=== PATIENT | male | born 1955 | race Caucasian/White ===

== ENCOUNTER 2023-11-30 05:24 | Inpatient (IN) | payer BC, OTHER ==
[~2023-11-30] VITALS: Ht 175.3 cm; Wt 75.8 kg
[~2023-11-30 05:24] MED LIST: BUDE6HFA INH; HYDR-3919 PO; TIOT18CA3 IH; TRAZ-250 PO; VIS50 PO; WELSR100 PO
[2023-11-30 05:29] VITALS: BP_SYST 111; PULSE 71; RESP 18; TEMP 97.8; O2SAT 98
[2023-11-30] MEDS: HYDROcodone/ACETAMIN 5-325 MG TAB (NORCO/ VICODIN) PO ONE (06:24)
[2023-11-30] MEDS: OXYMETAZOLINE HCL 0.05% NASAL SPRAY NS ONE (06:33)
[2023-11-30 06:34] LABS: MEAN CORPUSCULAR HEMOGLOBIN 32 pg (27-31); MEAN CORPUSCULAR HGB CONC 35 % (32-36); MEAN CORPUSCULAR VOLUME 91 fL (79.0-98.0); RED CELL DISTRIBUTION WIDTH 20.3 % (9.0-15.0); WHITE BLOOD COUNT (AUTO) 4.9 K/uL (4.8-10.8)
[2023-11-30 06:41] LABS: CALCIUM 8.9 mg/dL (8.4-11.0); CREATININE 1.23 mg/dL (0.55-1.30); POTASSIUM 4.1 mmol/L (3.5-5.1); RED BLOOD CELL COUNT(AUTO) 1.93 MIL/uL (4.2-6.2)
[2023-11-30 06:43] LABS: HEMATOCRIT 17.6 % (36-54); HEMOGLOBIN 6.1 g/dL (14.0-18.0); PLATELET COUNT (AUTO) 28 K/uL (130-430)
[2023-11-30 06:46] LABS: ALBUMIN 3.4 g/dL (3.4-4.8); BILIRUBIN,DIRECT 0.2 mg/dL (0.0-0.3); TOTAL BILIRUBIN 0.5 mg/dL (0.0-1.0); TOTAL PROTEIN, SERUM 6.5 g/dL (6.4-8.3)
[2023-11-30 06:55] LABS: INR 1.1 (0.80-1.20); PROTHROMBIN TIME 11.6 SECS (9.5-12.5)
[2023-11-30 07:35] LABS: FIBRINOGEN 285 mg/dL (200-400)
[2023-11-30 08:03] LABS: BAND % (MANUAL) 10 % (0-6)
[2023-11-30 08:04] LABS: ANISOCYTOSIS 2+; BASOPHILS % (MANUAL) 0 % (0-2); CORRECTED WHITE BLOOD COUNT 4.7 K/uL (4.5-11.0); EOSINOPHILS % (MANUAL) 0 % (0-7); LYMPHOCYTES % (MANUAL) 22 % (20-46); METAMYELOCYTES % 3 % (0-0); MONOCYTES % (MANUAL) 3 % (0-11); MYELOCYTES % 1 % (0-0); PLATELET ESTIMATE DECREASED (ADEQUATE)
[2023-11-30 08:05] LABS: HELMET CELLS FEW; POLYCHROMASIA 1+; TEAR DROP CELLS FEW
[2023-11-30] MEDS ORDERED: SIMV-343 PO (09:16)
[2023-11-30] MEDS ORDERED: SULF500T8 PO (09:16)
[2023-11-30] MEDS ORDERED: GABA-529 PO (09:16)
[2023-11-30] MEDS ORDERED: DICL75TA5 PO (09:16)
[2023-11-30] MEDS ORDERED: TAMS-11 PO (09:16)
[2023-11-30] MEDS ORDERED: RUXO10TA PO (09:17)
[2023-11-30] MEDS: MORPHINE 2 MG/ML INJ. SYRINGE IVP ONE (09:30)
[2023-11-30] MEDS ORDERED: NALOXONE HCL 0.4 MG/ML AMP (NARCAN) IVP PRN ×3 (12:45→13:00)
[2023-11-30] MEDS ORDERED: ONDANSETRON HCL 4 MG/2 ML VIAL IVP PRN (13:00)
[2023-11-30] MEDS ORDERED: ACETAMINOPHEN 325 MG TABLET PO PRN (13:00)
[2023-11-30] MEDS: MORPHINE 2 MG/ML INJ. SYRINGE IVP PRN (13:32)
[2023-11-30 14:15] VITALS: O2SAT 96
[2023-11-30] MEDS ORDERED: IPRATROPIUM/ALBUTEROL SULFATE 3 ML AMPUL.NEB (DUONEB) ONE (14:15)
[2023-11-30 14:18] VITALS: PULSE 80; O2SAT 96
[2023-11-30] MEDS: NORMAL SALINE 5 ML DISP.SYRIN IVF SCH (15:10)
[2023-11-30] MEDS: DICLOFENAC SODIUM 25 MG TABLET.DR PO ONE (16:15)
[2023-11-30] MEDS: sulfaSALAzine 500 MG TABLET PO ONE (16:15)
[2023-11-30] MEDS: SIMVASTATIN 20 MG TABLET PO ONE (16:15)
[2023-11-30] MEDS: HYDROcodone/ACETAMIN 10-325 MG TAB PO PRN (16:45)
[2023-11-30] MEDS: GABAPENTIN 100 MG CAPSULE PO SCH (16:50)
[2023-11-30] MEDS ORDERED: SODIUM CL 3% FOR INHALATION 15 ML VIAL.NEB INH ONE (17:19)
[2023-11-30 19:31] LABS: BILIRUBIN,URINE NEGATIVE (NEGATIVE); BLOOD, URINE NEGATIVE (NEGATIVE); CLARITY/URINE CLEAR (CLEAR); COLOR,URINE YELLOW (YELLOW); GLUCOSE,URINE NEGATIVE (NEGATIVE); KETONES,URINE NEGATIVE (NEGATIVE); LEUKOCYTE ESTERASE ,URINE NEGATIVE (NEGATIVE); NITRITE, URINE NEGATIVE (NEGATIVE); PROTEIN URINE NEGATIVE (NEGATIVE); UROBILINOGEN,URINE 0.2 (0.2-1.0)
[2023-11-30] MEDS: TAMSULOSIN HCL 0.4 MG CAP PO SCH (21:24)
[2023-11-30] MEDS: RUXOLITINIB 10 MG PO SCH (21:25)
[2023-12-01] VITALS (11 sets, daily range): BP systolic 124–149; PULSE 79–100; RESP 18–20; TEMP 97.5–100.6; O2SAT 92–99
[2023-12-01] MEDS: IPRATROPIUM/ALBUTEROL SULFATE 3 ML AMPUL.NEB (DUONEB) INH PRN (02:53)
[2023-12-01 05:25] LABS: BASOPHILS % (AUTO) 0.9 % (0.0-2.0); EOSINOPHILS % (AUTO) 0.3 % (0.0-4.0); LYMPHOCYTES # (AUTO) 0.8 K/uL (1.0-5.5); LYMPHOCYTES % (AUTO) 22.1 % (20.5-51.5); MEAN CORPUSCULAR HEMOGLOBIN 32 pg (27-31); MEAN CORPUSCULAR HGB CONC 35 % (32-36); MEAN CORPUSCULAR VOLUME 91 fL (79.0-98.0); MONOCYTES # (AUTO) 0.2 K/uL (0.0-1.0); MONOCYTES % (AUTO) 5.8 % (1.7-9.3); NEUTROPHILS # (AUTO) 2.5 K/uL (1.8-7.7); NEUTROPHILS % (AUTO) 70.9 % (40.0-70.0); RED CELL DISTRIBUTION WIDTH 19.3 % (9.0-15.0); WHITE BLOOD COUNT (AUTO) 3.5 K/uL (4.8-10.8)
[2023-12-01 05:43] LABS: TOTAL IRON BIND. CAPACITY 239 ug/dL (250-450)
[2023-12-01 06:01] LABS: CALCIUM 8.4 mg/dL (8.4-11.0); CREATININE 1.16 mg/dL (0.55-1.30); POTASSIUM 4.1 mmol/L (3.5-5.1); TOTAL BILIRUBIN 0.6 mg/dL (0.0-1.0); TOTAL PROTEIN, SERUM 5.9 g/dL (6.4-8.3)
[2023-12-01 06:35] LABS: RED BLOOD CELL COUNT(AUTO) 1.74 MIL/uL (4.2-6.2)
[2023-12-01 06:38] LABS: HEMATOCRIT 15.7 % (36-54); HEMOGLOBIN 5.5 g/dL (14.0-18.0); PLATELET COUNT (AUTO) 26 K/uL (130-430)
[2023-12-01] MEDS: SIMVASTATIN 20 MG TABLET PO SCH (08:13)
[2023-12-01] MEDS: DICLOFENAC SODIUM 25 MG TABLET.DR PO SCH (08:13)
[2023-12-01] MEDS: sulfaSALAzine 500 MG TABLET PO SCH (09:00)
[2023-12-01] MEDS: FOLIC ACID 1 MG TABLET PO ONE (15:08)
[2023-12-01 22:13] LABS: HEMOGLOBIN 6.6 g/dL (14.0-18.0)
[2023-12-01] MEDS: guaiFENesin 200 MG/CODEINE 20 MG/ 10 ML UDC PO PRN (23:51)
[2023-12-02] VITALS (8 sets, daily range): BP systolic 145–149; PULSE 81–99; RESP 18–20; TEMP 98–98.6; O2SAT 90–98
[2023-12-02 06:26] LABS: HEMOGLOBIN 7.3 g/dL (14.0-18.0); MEAN CORPUSCULAR HEMOGLOBIN 32 pg (27-31); MEAN CORPUSCULAR HGB CONC 35 % (32-36); MEAN CORPUSCULAR VOLUME 91 fL (79.0-98.0); RED BLOOD CELL COUNT(AUTO) 2.29 MIL/uL (4.2-6.2); RED CELL DISTRIBUTION WIDTH 17.8 % (9.0-15.0); WHITE BLOOD COUNT (AUTO) 3.7 K/uL (4.8-10.8)
[2023-12-02 06:56] LABS: ALBUMIN 3.1 g/dL (3.4-4.8); CALCIUM 8.5 mg/dL (8.4-11.0); CREATININE 0.98 mg/dL (0.55-1.30); POTASSIUM 4.1 mmol/L (3.5-5.1); TOTAL BILIRUBIN 0.6 mg/dL (0.0-1.0); TOTAL PROTEIN, SERUM 6.3 g/dL (6.4-8.3)
[2023-12-02] MEDS: FOLIC ACID 1 MG TABLET PO SCH (08:31)
[2023-12-02 08:38] LABS: HEMATOCRIT 20.9 % (36-54); PLATELET COUNT (AUTO) 22 K/uL (130-430)
[2023-12-02 09:33] LABS: CORRECTED WHITE BLOOD COUNT 3.5 K/uL (4.5-11.0)
[2023-12-02 09:34] LABS: BAND % (MANUAL) 15 % (0-6); BASOPHILS % (MANUAL) 0 % (0-2); BLASTS, MANUAL % 1 % (0-0); EOSINOPHILS % (MANUAL) 0 % (0-7); LYMPHOCYTES % (MANUAL) 8 % (20-46); METAMYELOCYTES % 4 % (0-0); MONOCYTES % (MANUAL) 6 % (0-11); MYELOCYTES % 1 % (0-0)
[2023-12-02 09:35] LABS: ANISOCYTOSIS 1+; PLATELET ESTIMATE DECREASED (ADEQUATE); POLYCHROMASIA 1+; TEAR DROP CELLS FEW
[2023-12-02] MEDS: LORazepam 2 MG/ML VIAL IVP PRN (14:20)
[2023-12-02] MEDS ORDERED: FOLI-43 PO (14:40)
[2023-12-02 22:35] LABS: ABG O2 SAT% ESTIMATE 88.6 % (94.0-100.0); ALLEN'S TEST POSITIVE (P); BLOOD GAS HCO3 29.1 mmol/L (21.0-27.0); BLOOD GAS PCO2 45.5 mmHg (32.0-45.0); BLOOD GAS PH 7.424 (7.350-7.450); BLOOD GAS PO2 54.1 mmHg (75.0-100.0)
[2023-12-03] VITALS (12 sets, daily range): BP systolic 136–166; PULSE 82–97; RESP 16–20; TEMP 97.7–98.9; O2SAT 88–96
[2023-12-03 02:29] LABS: BILIRUBIN,URINE NEGATIVE (NEGATIVE); BLOOD, URINE 2+ (NEGATIVE); COLOR,URINE YELLOW (YELLOW); GLUCOSE,URINE NEGATIVE (NEGATIVE); KETONES,URINE NEGATIVE (NEGATIVE); LEUKOCYTE ESTERASE ,URINE NEGATIVE (NEGATIVE); NITRITE, URINE NEGATIVE (NEGATIVE); PROTEIN URINE TRACE (NEGATIVE); UROBILINOGEN,URINE 0.2 (0.2-1.0)
[2023-12-03 02:53] LABS: CLARITY/URINE HAZY (CLEAR)
[2023-12-03 03:05] LABS: WBC,URINE 0-3 /HPF (0-3)
[2023-12-03 03:06] LABS: BACTERIA,URINE None Seen /HPF (None Seen)
[2023-12-03 06:02] LABS: EOSINOPHILS % (AUTO) 0.3 % (0.0-4.0); LYMPHOCYTES # (AUTO) 0.8 K/uL (1.0-5.5); LYMPHOCYTES % (AUTO) 19.4 % (20.5-51.5); MEAN CORPUSCULAR HEMOGLOBIN 31 pg (27-31); MEAN CORPUSCULAR HGB CONC 34 % (32-36); MEAN CORPUSCULAR VOLUME 90 fL (79.0-98.0); MONOCYTES # (AUTO) 0.2 K/uL (0.0-1.0); MONOCYTES % (AUTO) 4.5 % (1.7-9.3); NEUTROPHILS % (AUTO) 74.8 % (40.0-70.0); RED BLOOD CELL COUNT(AUTO) 2.17 MIL/uL (4.2-6.2); RED CELL DISTRIBUTION WIDTH 17.5 % (9.0-15.0); WHITE BLOOD COUNT (AUTO) 4.1 K/uL (4.8-10.8)
[2023-12-03 06:45] LABS: CALCIUM 8.3 mg/dL (8.4-11.0); CREATININE 1.02 mg/dL (0.55-1.30); POTASSIUM 4.6 mmol/L (3.5-5.1); TOTAL BILIRUBIN 0.5 mg/dL (0.0-1.0)
[2023-12-03 07:48] LABS: HEMATOCRIT 19.6 % (36-54); HEMOGLOBIN 6.8 g/dL (14.0-18.0); PLATELET COUNT (AUTO) 18 K/uL (130-430)
[2023-12-03] MEDS: AZITHROMYCIN 500 MG in NS 250 ML IV SCH (11:28)
[2023-12-03] MEDS: DEXAMETHASONE SOD PHOSPHATE 10 MG/ML VIAL IVP ONE (11:28)
[2023-12-03] MEDS: DEXAMETHASONE SOD PHOSPHATE 10 MG/ML VIAL IVP SCH (11:29)
[2023-12-03] MEDS: cefTRIAXone 1 GM in D5W 50 ML IV SCH (11:31)
[2023-12-03] MEDS: EPOETIN ALFA-EPBX 4,000 UNITS/ML VIAL SUBCUT ONE (18:23)
[2023-12-03] MEDS: IPRATROPIUM/ALBUTEROL SULFATE 3 ML AMPUL.NEB (DUONEB) INH SCH (20:20)
[2023-12-04] VITALS (10 sets, daily range): BP systolic 138–159; PULSE 88–96; RESP 16–20; TEMP 97.4–99.1; O2SAT 88–95
[2023-12-04 05:56] LABS: BASOPHILS % (AUTO) 0.6 % (0.0-2.0); EOSINOPHILS % (AUTO) 0.3 % (0.0-4.0); HEMATOCRIT 25.8 % (36-54); HEMOGLOBIN 9.1 g/dL (14.0-18.0); LYMPHOCYTES # (AUTO) 0.7 K/uL (1.0-5.5); LYMPHOCYTES % (AUTO) 11.3 % (20.5-51.5); MEAN CORPUSCULAR HEMOGLOBIN 32 pg (27-31); MEAN CORPUSCULAR HGB CONC 35 % (32-36); MEAN CORPUSCULAR VOLUME 89 fL (79.0-98.0); MONOCYTES # (AUTO) 0.2 K/uL (0.0-1.0); MONOCYTES % (AUTO) 3.2 % (1.7-9.3); NEUTROPHILS # (AUTO) 5.3 K/uL (1.8-7.7); RED CELL DISTRIBUTION WIDTH 17.2 % (9.0-15.0); WHITE BLOOD COUNT (AUTO) 6.2 K/uL (4.8-10.8)
[2023-12-04] MEDS: HYDROcodone/ACETAMIN 5-325 MG TAB (NORCO/ VICODIN) PO PRN (06:00)
[2023-12-04 06:33] LABS: CALCIUM 8.1 mg/dL (8.4-11.0); CREATININE 0.97 mg/dL (0.55-1.30); POTASSIUM 4.5 mmol/L (3.5-5.1); TOTAL BILIRUBIN 0.6 mg/dL (0.0-1.0); TOTAL PROTEIN, SERUM 6.3 g/dL (6.4-8.3)
[2023-12-04 08:02] LABS: PLATELET COUNT (AUTO) 18 K/uL (130-430)
[2023-12-04 08:05] LABS: NEUTROPHILS % (AUTO) 84.6 % (40.0-70.0)
[2023-12-04] MEDS ORDERED: MENTHOL MM ONE (15:45)
[2023-12-04] MEDS ORDERED: BENZOCAINE MM ONE (15:45)
[2023-12-04] MEDS: DEXTROMET/BENZOCAIN/MENTHOL SF 1 LOZENGE MM ONE (16:20)
[2023-12-05] MEDS ORDERED: EPOETIN ALFA-EPBX 4,000 UNITS/ML VIAL SUBCUT SCH (17:00)
== END 2023-12-04 17:40 | disposition home or self-care (01) | DRG 841 ==
LOC: SED 05:24 → SMU 09:06 → STU 12-01 19:23 → SMU 12-02 22:41
PROVIDERS: ADMIT Preventive Medicine Preventive Medicine/Occupational Environmental Medicine; ATTEND Preventive Medicine Preventive Medicine/Occupational Environmental Medicine
PROC: 30233N1 Transfusion of Nonautologous Red Blood Cells into Peripheral Vein, Percutaneous Approach (ICD-10-PCS; principal; 2023-11-30)
PROC: 30233R1 Transfusion of Nonautologous Platelets into Peripheral Vein, Percutaneous Approach (ICD-10-PCS; 2023-12-01)
DX: C94.40 Acute panmyelosis with myelofibrosis not having achieved remission (principal); D61.818 Other pancytopenia; E87.1 Hypo-osmolality and hyponatremia; J98.11 Atelectasis; R16.2 Hepatomegaly with splenomegaly, not elsewhere classified; D63.8 Anemia in other chronic diseases classified elsewhere; N40.0 Benign prostatic hyperplasia without lower urinary tract symptoms; J44.9 Chronic obstructive pulmonary disease, unspecified; D52.9 Folate deficiency anemia, unspecified; Z79.899 Other long term (current) drug therapy; Z86.73 Personal history of transient ischemic attack (TIA), and cerebral infarction without residual deficits
CPT/HCPCS: 36415; 36600; 71045; 74018; 80048; 80053; 80076; 81000; 81001; 81003; 81015; 82272; 82668; 82803; 83010; 83540; 83550; 83615; 85007; 85018; 85025; 85027; 85044; 85379; 85384; 85610; 85730; 86886; 86900; 86901; 86920; 94640; 94664; 94760; 96374; 96376; 99291; G0378; J0456; J0696; J1100; J2060; J2270; J7050; J7060; J7131; P9021; P9034; Q5106